=== PATIENT | female | born 1990 | race Caucasian/White ===

== ENCOUNTER 2017-04-16 10:32 | Emergency (ER) | payer OTHER ==
[2017-04-16] MEDS ORDERED: NORMAL SALINE 1000 ML 1,000 ML IV ONE (11:10)
[2017-04-16] MEDS ORDERED: KETOROLAC TROMETHAMINE INJ/PF 30 MG/1 ML SDV IV ONE (11:11)
--- NOTE | 2017-04-16 11:12 | ER Document Report ---
ED GI/ - General Chief Complaint: Vaginal Bleeding Stated Complaint: VAGINAL BLEEDING Time Seen by Provider: 04/16/17 10:59 Mode of Arrival: Ambulatory Information source: Patient Notes: Patient presents complaining of vaginal bleeding for the past 3 weeks. Patient states she has been passing large clots. Patient states today that she felt faint. Patient is currently incarcerated at the [facility]. Patient would like STD testing. TRAVEL OUTSIDE OF THE [place] IN LAST 30 DAYS: No - HPI Patient complains to provider of: Pelvic pain, Vaginal bleeding. No: Vaginal discharge Onset: Other - 3 weeks Timing/Duration: Persistent Quality of pain: Cramping Pain Level: 4 Location: Pelvis Vaginal bleeding (Compared to normal period): Heavier Associated symptoms: denies: Dysuria, Nausea, Urinary hesitancy, Urinary frequency, Vaginal discharge, Vomiting Exacerbated by: Denies Relieved by: Denies Similar symptoms previously: Yes Recently seen / treated by doctor: No - Related Data Allergies/Adverse Reactions: iodine [Iodine] Allergy (Severe, Verified 04/16/17 10:55) Anaphylaxis Shellfish * [Shellfish] Allergy (Severe, Verified 04/16/17 10:55) Anaphylaxis Past Medical History - General Information source: Patient - Social History Smoking Status: Unknown if Ever Smoked Chew tobacco use (# tins/day): No Frequency of alcohol use: None Drug Abuse: None Occupation: None Family History: Reviewed & Not Pertinent Patient has suicidal ideation: No Patient has homicidal ideation: No Neurological Medical History: Reports: Hx Seizures - "when stops taking xanax" Renal/ Medical History: Denies: Hx Peritoneal Dialysis Psychiatric Medical History: Reports: Hx Bipolar Disorder, Hx Depression Past Surgical History: Reports: Hx Section - x1, Hx Urinary Tract Surgery - urethra expansion as infant - Immunizations Hx Diphtheria, Pertussis, Tetanus Vaccination: Yes - 2005 Review of Systems - Review of Systems Constitutional: No symptoms reported. denies: Fever, Recent illness EENT: No symptoms reported Cardiovascular: Lightheaded. denies: Chest pain Respiratory: No symptoms reported. denies: Cough Gastrointestinal: Abdominal pain. denies: Nausea, Vomiting Genitourinary: No symptoms reported. denies: Dysuria, Flank pain Female Genitourinary: Heavy/abnormal periods, Vaginal bleeding. denies: Vaginal discharge Musculoskeletal: Back pain Skin: No symptoms reported Hematologic/Lymphatic: No symptoms reported Neurological/Psychological: No symptoms reported Physical Exam - Vital signs Vitals: Temp Pulse Resp BP Pulse Ox 99.1 F 77 16 122/82 100 04/16/17 10:41 04/16/17 10:41 04/16/17 10:41 04/16/17 10:41 04/16/17 10:41 - General General appearance: Appears well, Alert In distress: None - HEENT Head: Normocephalic, Atraumatic Eyes: Normal Nasal: Normal Mouth/Lips: Normal Mucous membranes: Normal Neck: Normal - Respiratory Respiratory status: No respiratory distress Chest status: Nontender Breath sounds: Normal. No: Rales, Rhonchi, Stridor, Wheezing Chest palpation: Normal - Cardiovascular Rhythm: Regular Heart sounds: S1 appreciated, S2 appreciated Murmur: No - Abdominal Inspection: Normal Distension: No distension Bowel sounds: Normal Tenderness: Tender - Lower pelvic Organomegaly: No organomegaly - Genitourinary External exam: Normal Speculum exam: Cervix closed Vaginal bleeding: Mild Bimanuel exam: Normal. No: Cervical motion tender, Adnexal tenderness Notes: pct as standby - Back Back: CVA tenderness - Right - Extremities General upper extremity: Normal inspection, Normal ROM General lower extremity: Normal inspection, Normal ROM - Neurological Neuro grossly intact: Yes Cognition: Normal Chung Coma Scale Eye Opening: Spontaneous Huntington Coma Scale Verbal: Oriented Chung Coma Scale Motor: Obeys Commands [place] Coma Scale Total: 15 - Psychological Associated symptoms: Normal affect, Normal mood - Skin Skin Temperature: Warm Skin Moisture: Dry Skin Color: Normal Course - Re-evaluation Re-evalutation: 04/16/17 13:44 Discuss results of patient's laboratory studies with patient. Patient with only very minimal vaginal bleeding on exam. IV fluids administered. Patient nontoxic in appearance. Abdomen soft, no guarding. Patient encouraged to follow-up with land surveying survey worker for recheck. Patient presents with abdominal pain without signs of peritonitis or other life-threatening or serious etiology. Patient appears stable for discharge and has been instructed to return immediately if the symptoms worsen in any way - Vital Signs Vital signs: Temp Pulse Resp BP Pulse Ox 97.9 F 68 16 121/92 H 100 04/16/17 14:47 04/16/17 14:47 04/16/17 10:41 04/16/17 14:47 04/16/17 14:47 - Laboratory Result Diagrams: 04/16/17 11:44 04/16/17 11:44 Laboratory results interpreted by me: 04/16/17 04/16/17 04/16/17 11:44 11:44 12:25 Hgb 11.9 L Hct 35.4 L RDW 16.0 H Total Protein 8.3 H Ur Leukocyte Esterase TRACE H Labs- Entire Visit 04/16/17 04/16/17 04/16/17 11:44 11:44 11:44 WBC 8.1 RBC 4.08 Hgb 11.9 L Hct 35.4 L MCV 87 MCH 29.2 MCHC 33.7 RDW 16.0 H Plt Count 283 Seg Neutrophils % 53.0 Lymphocytes % 36.2 Monocytes % 9.0 Eosinophils % 1.3 Basophils % 0.5 Absolute Neutrophils 4.3 Absolute Lymphocytes 2.9 Absolute Monocytes 0.7 Absolute Eosinophils 0.1 Absolute Basophils 0.0 Sodium 141.8 Potassium 4.0 Chloride 102 Carbon Dioxide 30 Anion Gap 10 BUN 15 Creatinine 0.65 Est GFR ( Amer) > 60 Est GFR (Non-Af Amer) > 60 Glucose 90 Calcium 9.9 Total Bilirubin 0.3 Direct Bilirubin 0.3 Neonat Total Bilirubin Not Reportable Neonat Direct Bilirubin Not Reportable Neonat Indirect Bili Not Reportable AST 23 ALT 25 Alkaline Phosphatase 76 Total Protein 8.3 H Albumin 4.7 Serum HCG, Qual NEGATIVE Urine Color Urine Appearance Urine pH Ur Specific [place] Urine Protein Urine Glucose (UA) Urine Ketones Urine Blood Urine Nitrite Urine Bilirubin Urine Urobilinogen Ur Leukocyte Esterase Urine WBC (Auto) Urine RBC (Auto) Squamous Epi Cells Auto Urine Ascorbic Acid Trichomonas (Wet Prep) Vaginal WBC Vaginal RBC Vaginal Yeast 04/16/17 04/16/17 12:25 12:25 WBC RBC Hgb Hct MCV MCH MCHC RDW Plt Count Seg Neutrophils % Lymphocytes % Monocytes % Eosinophils % Basophils % Absolute Neutrophils Absolute Lymphocytes Absolute Monocytes Absolute Eosinophils Absolute Basophils Sodium Potassium Chloride Carbon Dioxide Anion Gap BUN Creatinine Est GFR ( Amer) Est GFR (Non-Af Amer) Glucose Calcium Total Bilirubin Direct Bilirubin Neonat Total Bilirubin Neonat Direct Bilirubin Neonat Indirect Bili AST ALT Alkaline Phosphatase Total Protein Albumin Serum HCG, Qual Urine Color STRAW Urine Appearance CLEAR Urine pH 7.0 Ur Specific [place] 1.005 Urine Protein NEGATIVE Urine Glucose (UA) NEGATIVE Urine Ketones NEGATIVE Urine Blood NEGATIVE Urine Nitrite NEGATIVE Urine Bilirubin NEGATIVE Urine Urobilinogen NEGATIVE Ur Leukocyte Esterase TRACE H Urine WBC (Auto) 1 Urine RBC (Auto) 0 Squamous Epi Cells Auto 1 Urine Ascorbic Acid NEGATIVE Trichomonas (Wet Prep) NO TRICHOMONAS SEEN Vaginal WBC NO WBCS SEEN Vaginal RBC 1+ RBCS SEEN Vaginal Yeast NO YEAST SEEN Discharge - Discharge Clinical Impression: Dysmenorrhea Condition: Stable Disposition: HOME, SELF-CARE Instructions: Anti-Inflammatory Medication ([facility]), Dysmenorrhea ([facility]) Additional Instructions: Return immediately for any new or worsening symptoms Followup with your primary care provider, call tomorrow to make a followup appointment Prescriptions: Naproxen [Naprosyn 250 Nmg Tablet] 1 tab PO BID #14 tablet Referrals: [facility] [Provider Group] - Follow up as needed
[2017-04-16 11:54] LABS: ABSOLUTE EOSINOPHILS # (AUTO) 0.1 10^3/uL (0.0-0.6); ABSOLUTE LYMPHOCYTES (AUTO) 2.9 10^3/uL (0.5-4.7); ABSOLUTE MONOCYTES (AUTO) 0.7 10^3/uL (0.1-1.4); ABSOLUTE NEUT (AUTO) 4.3 10^3/uL (1.7-8.2); BASOPHILS % (AUTO) 0.5 % (0-2); EOSINOPHILS % (AUTO) 1.3 % (0-6); HEMATOCRIT 35.4 % (36.0-47.0); HEMOGLOBIN 11.9 g/dL (12.0-15.5); LYMPHOCYTES % (AUTO) 36.2 % (13-45); MEAN CORPUSCULAR HEMOGLOBIN 29.2 pg (27.0-33.4); MEAN CORPUSCULAR HGB CONC 33.7 g/dL (32.0-36.0); MEAN CORPUSCULAR VOLUME 87 fl (80-97); PLATELET COUNT 283 10^3/uL (150-450); RED BLOOD COUNT 4.08 10^6/uL (3.72-5.28); TOTAL CELLS COUNTED % (AUTO) 100 %; WHITE BLOOD COUNT 8.1 10^3/uL (4.0-10.5)
[2017-04-16 12:14] LABS: ALANINE AMINOTRANSFERASE 25 U/L (9-52); ALBUMIN 4.7 g/dL (3.5-5.0); ALKALINE PHOSPHATASE 76 U/L (38-126); ANION GAP 10 (5-19); ASPARTATE AMINO TRANSFERASE 23 U/L (14-36); BILIRUBIN,DIRECT 0.3 mg/dL (0.0-0.4); BILIRUBIN,TOTAL 0.3 mg/dL (0.2-1.3); BLOOD UREA NITROGEN 15 mg/dL (7-20); CALCIUM 9.9 mg/dL (8.4-10.2); CARBON DIOXIDE 30 mmol/L (22-30); CHLORIDE 102 mmol/L (98-107); GLUCOSE 90 mg/dL (75-110); SODIUM 141.8 mmol/L (137-145); TOTAL PROTEIN 8.3 g/dL (6.3-8.2)
[2017-04-16 12:48] LABS: APPEARANCE,URINE CLEAR; BILIRUBIN,URINE NEGATIVE (NEGATIVE); COLOR,URINE STRAW; GLUCOSE, URINE NEGATIVE (NEGATIVE); KETONES,URINE NEGATIVE (NEGATIVE); LEUKOCYTE ESTERASE,URINE TRACE (NEGATIVE); NITRITE,URINE NEGATIVE (NEGATIVE); PROTEIN,URINE NEGATIVE (NEGATIVE); URINE SPECIFIC GRAVITY 1.005; UROBILINOGEN,URINE NEGATIVE mg/dL (<2.0)
[2017-04-16 12:52] LABS: RBCS (WET MOUNT) 1+ RBCS SEEN; T.VAGINALIS (WET MOUNT) NO TRICHOMONAS SEEN; WBCS (WET MOUNT) NO WBCS SEEN; YEAST (WET MOUNT) NO YEAST SEEN
[2017-04-16] MEDS ORDERED: CEFTRIAXONE INJ 250 MG VIAL IV ONE (13:49)
[2017-04-16] MEDS ORDERED: AZITHROMYCIN 250 MG TABLET PO ONE (13:49)
[2017-04-16 14:13] LABS: CHLAM PCR NOT DETECTED (NOT DETECT); GON PCR NOT DETECTED (NOT DETECT)
[2017-04-16 14:49] VITALS: BP 121/92
== END 2017-04-16 14:49 | disposition home or self-care (01) ==
LOC: ER 10:32
DX: N94.6 Dysmenorrhea, unspecified (principal); N93.9 Abnormal uterine and vaginal bleeding, unspecified; R55 Syncope and collapse; R10.2 Pelvic and perineal pain
CPT/HCPCS: 99284; 96361; 51701; 96375; 96365; 36415; 87210; 84703; 85025; 80053; 81001; 87491; 87591; J1885; J7030; J0696